=== PATIENT | male | born 1960 | race Caucasian/White ===

== ENCOUNTER 2021-07-18 09:38 | Day surgery (SDC) | payer OTHER ==
--- NOTE | 2021-07-18 07:43 | HP ---
DATE OF SURGERY: 07/18/2021 HISTORY OF PRESENT ILLNESS: The patient is a 60-year-old had an upper endoscopy and had a small ulcer. He has been on Prilosec and feeling better. Reflux is better. He is in need of follow up upper endoscopy to evaluate for healing of the ulcer. PAST MEDICAL HISTORY: Hypertension. PAST SURGICAL HISTORY: He had some sort of hernia repair in the past. MEDICATIONS: Lisinopril, Protonix. ALLERGIES: NKDA. FAMILY HISTORY: Stomach cancer in the mother in the past. SOCIAL HISTORY: History of smoking. He drinks some alcohol denies abuse. REVIEW OF SYSTEMS: Fourteen systems reviewed. No chest pain or palpitations. Other systems negative or noncontributory as above and per preadmission questionnaire. PHYSICAL EXAMINATION: GENERAL: No acute distress. HEENT: Sclerae nonicteric. NECK: No JVD. CHEST: Equal excursion, nonlabored breathing. CVS: Regular rate and rhythm. ABDOMEN: Soft. No peritoneal signs. EXTREMITIES: No significant edema. NEURO: Alert, oriented, moving extremities symmetrically. PSYCH: Appropriate mood and affect. IMPRESSION: History of prepyloric ulcer. He is in need of follow up upper endoscopy for further evaluation. Risks and benefits explained in detail including but not limited to bleeding or infection, risk of bowel injury or perforation possibly requiring open procedure, risk of missed or nondiagnosis or incomplete exam possibly requiring barium swallow, other studies or procedures. General risk of anesthesia or sedation, but not limited to, consent obtained. Will proceed with follow up EGD possible biopsy.
[2021-07-18] MEDS ORDERED: Lactated Ringers 1,000 ML IV SCH (10:00)
[2021-07-18] MEDS ORDERED: Versed 2 MG/2 ML Injection ONE (11:12)
[2021-07-18] MEDS ORDERED: DIPRIVAN 200 MG/20 ML IV ONE (11:12)
[2021-07-18] MEDS ORDERED: Xylocaine-Mpf 2% 5 Ml Vial ONE (11:12)
[2021-07-18 13:08] VITALS: BP 147/96; PULSE 74; O2SAT 97
--- NOTE | 2021-07-18 15:24 | OP ---
SURGERY DATE/TIME: 07/18/2021 1114 PREOPERATIVE DIAGNOSIS: Prior history of prepyloric ulcer and gastritis, need for follow up upper endoscopy. POSTOPERATIVE DIAGNOSES: 1) Healed ulcer in prepyloric area. 2) Mild gastritis. 3) Small gastric polyp. PROCEDURES: 1) EGD with cold biopsy of the antrum for Helicobacter pylori. 2) Cold biopsy small gastric polyps. SURGEON: Dr. Kj Perez. ANESTHESIA: MAC. ESTIMATED BLOOD LOSS: Minimal. INDICATIONS: As noted above. Risks and benefits explained in detail and not limited to and consent obtained. DESCRIPTION OF PROCEDURE AND FINDINGS: The patient is taken to the endoscopy room. MAC anesthesia introduced. After official time out and no disagreement with planned procedure, a bite block positioned. Video gastroscope easily passed down the esophagus to the third portion of the duodenum. Third, second and first portion of the duodenum grossly unremarkable. Back in the stomach, the area where he had the prepyloric ulcer looked healed. He did have a little bit of gastritis. Cold biopsy taken to evaluate for Helicobacter pylori. Good hemostasis noted. On retroflex the gastroesophageal junction fairly snug against the scope. No signs of any evidence of any large hiatal hernia. The scope is pulled back. The fundus had a couple small gastric polyps removed with cold biopsy forceps. Good hemostasis noted. Otherwise, the remainder of the esophagus is stable from previous exam in the recent past. The scope is withdrawn. There were no immediate complications.
== END 2021-07-18 12:20 | disposition home or self-care (01) ==
LOC: SDC 09:38
PROVIDERS: ATTEND Surgery
DX: Z09 Encounter for follow-up examination after completed treatment for conditions other than malignant neoplasm (principal); K31.7 Polyp of stomach and duodenum; K29.70 Gastritis, unspecified, without bleeding; Z87.11 Personal history of peptic ulcer disease
CPT/HCPCS: 88305; J2250; J2704

== ENCOUNTER 2021-09-12 09:54 | Day surgery (SDC) | payer OTHER ==
[~2021-09-12 09:54] MED LIST: Sensorcaine 0.25% 10 ML ONE
[2021-09-12] MEDS ORDERED: Zestril 20 MG PO ONE (09:55)
--- NOTE | 2021-09-12 10:06 | HP ---
DATE OF SURGERY: 09/12/2021 HISTORY OF PRESENT ILLNESS: The patient is a 60-year-old with bulge and bothers him on occasion. He had prior left inguinal hernia repair in open fashion. He now has right inguinal hernia. I feel he would benefit from repair. PAST MEDICAL HISTORY: Hypertension. PAST SURGICAL HISTORY: Left inguinal hernia repair in the past. Cataract surgery in the past. MEDICATIONS: Lisinopril, vitamin B12, pantoprazole. ALLERGIES: NKDA. FAMILY HISTORY: Negative in regards to this specific problem. SOCIAL HISTORY: History of some smoking and some alcohol use denies abuse. LAB DATA AND TESTS: He had CT showing small fatty right inguinal hernia. REVIEW OF SYSTEMS: Fourteen systems reviewed per admission assessment. No chest pain or palpitations. Other systems negative or noncontributory as above and per preadmission questionnaire. PHYSICAL EXAMINATION: GENERAL: No acute distress. HEENT: Sclerae nonicteric. NECK: No JVD. CHEST: Equal excursion, nonlabored breathing. CVS: Regular rate and rhythm. ABDOMEN: Soft. No peritoneal signs. Right inguinal hernia on exam. No evidence of left inguinal hernia at this time. EXTREMITIES: No significant edema. NEURO: Alert, oriented, moving extremities symmetrically. No gross motor deficits noted. RECTAL: Deferred timed to endoscopy exam. PSYCH: Appropriate mood and affect. IMPRESSION: Right inguinal hernia. I feel the patient would benefit from repair. Discussed options of laparoscopic versus open repair. I had a long discussion with the patient risk and benefits of open repair. General risk explained including but not limited to bleeding or infection, risk of ingrown hair or suture reaction, risk of mesh infection possibly requiring removal. Risk of hematoma or seroma formation, risk of swelling or firmness around the incision, risk of scar formation, risk of hernia recurrence, risk of aches, pains, burning, numbness lower abdomen, groin, thigh or scrotal area, possible moth exterminator or chronic in nature, possibly interfere with sexual function from the aches and pain standpoint. Risk of hernia recurrence, risk of black, blue and bruising but not limited to, general risk of anesthesia, deep venous thrombosis, pulmonary embolism, pneumonia but not limited to, consent obtained. Will proceed with open repair of right inguinal hernia with mesh as an outpatient.
[2021-09-12] MEDS ORDERED: CEFAZOLIN 2 GM-D5W BAG** 2 GM/50 ML ML IV SCH (10:30)
[2021-09-12] MEDS ORDERED: Lactated Ringers 1,000 ML IV SCH (10:30)
[2021-09-12] MEDS ORDERED: Decadron 4 MG INJ ONE (12:44)
[2021-09-12] MEDS ORDERED: Versed 2 MG/2 ML Injection ONE (12:54)
[2021-09-12] MEDS ORDERED: SUBLIMAZE 250 MCG/5 ML ONE (12:54)
[2021-09-12] MEDS ORDERED: DIPRIVAN 200 MG/20 ML IV ONE (12:54)
[2021-09-12] MEDS ORDERED: Xylocaine-Mpf 2% 5 Ml Vial ONE (12:57)
[2021-09-12] MEDS ORDERED: SUBLIMAZE 100 MCG/2 ML ONE ×2 (13:03→13:23)
[2021-09-12] MEDS ORDERED: Marcaine 0.5%/Epinephrine 10 ML ONE (13:44)
--- NOTE | 2021-09-12 14:59 | OP ---
SURGERY DATE/TIME: 09/12/2021 1207 PREOPERATIVE DIAGNOSIS: Right inguinal hernia. POSTOPERATIVE DIAGNOSIS: Right inguinal hernia direct, indirect as well as cord lipoma. PROCEDURES: 1) Open repair right inguinal hernia repair with mesh. 2) Excision of cord lipoma. SURGEON: Dr. Kj Perez. ANESTHESIA: General. ESTIMATED BLOOD LOSS: Minimal. INDICATIONS: As noted above. Risks and benefits explained in detail and not limited to and consent obtained. The site was confirmed and marked in the preoperative holding area. DESCRIPTION OF PROCEDURE AND FINDINGS: The patient is taken to the operating room. General anesthesia induced. He was prepped and draped in usual sterile fashion. After official time out and no disagreement with planned procedure, a transverse incision made right inguinal area. Dissection carried down through Aidan fascia. A small subcutaneous vein was carefully clamped, divided and ligated with Vicryl ties. Dissection carried through Aidan fascia. External oblique split in the direction of its fibers towards the external ring carefully protecting the underlying ilioinguinal area hypogastric nerve branches visible. Cord mobilized up off the pubic tubercle with [place] drain gently. He had a direct and indirect components as well as cord lipoma. Cremasteric fibers carefully lateral. Cord lipoma isolated away from the cord and ligated internal ring clamping with Vicryl tie and passed off. The indirect hernia component is carefully isolated away from the vas, cord vessels and vasculature. It had a sliding component with a large amount of preperitoneal fat this made it a little bit difficult so we carefully dissected back to the internal ring where it was high ligated with 0 Prolene inverting a large amount of this sliding preperitoneal fat back up into the abdomen where it belonged. At this point the direct hernia component was imbricated downwards with running 0 PDS up to a more normal sized internal ring. It was felt the patient would benefit from mesh repair. A 2x4 piece of mesh carefully placed securing the fascia overlying the pubic tubercle with 0 Prolene run along Helder's ligament along the shelving portion of inguinal ligament laterally past the internal ring with 0 Prolene. 0 Prolene used to transfix to the rectus fascia medially. 0 Vicryl used to transfix aponeurosis internal oblique superiorly avoiding visible iliohypogastric nerve branch. The tails of the mesh were tacked together laterally with 0 Prolene. The new internal ring was felt to be not too tight. Mesh is nice and flat in tension-free manner. Good hemostasis noted. The visible ilioinguinal/iliohypogastric nerve branches carefully protected. At this point, external oblique closed with 0 Vicryl. Aidan closed with 3-0 Vicryl. Subcu closed with 3-0 Vicryl. Skin closed with 4-0 Vicryl. 0.25% Marcaine local had been injected along the skin incision back towards the origin of the inguinal area back towards the anterior iliac spine. The patient tolerated the procedure well. Anesthesia planned additional tap blocks as well. Findings discussed with the family out in the waiting area.
[2021-09-12 16:19] VITALS: O2SAT 99
[2021-09-12 16:38] VITALS: BP 127/82; PULSE 64
== END 2021-09-12 16:44 | disposition home or self-care (01) ==
LOC: SDC 09:54
PROVIDERS: ATTEND Surgery
DX: K40.90 Unilateral inguinal hernia, without obstruction or gangrene, not specified as recurrent (principal); D17.6 Benign lipomatous neoplasm of spermatic cord
CPT/HCPCS: 49507; 55520; 64486; 76937; 76942; C1781; J0690; J1100; J2250; J2704; J3010; A9270-GY